=== PATIENT | male | born 1960 | race Caucasian/White ===

== ENCOUNTER 2024-05-12 12:48 | Emergency (ER) | payer OTHER, SELFPAY ==
[2024-05-12] VITALS (11 sets, daily range): BP systolic 107–193; BP diastolic 55–91; PULSE 77–88; RESP 10–21; TEMP 37.2; O2SAT 97–100; BMI 49.6
--- NOTE | 2024-05-12 13:10 | EKG_ITS ---
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
--- NOTE | 2024-05-12 13:10 | DI.RAD.S_ITS ---
PROCEDURE: XR CHEST 1V INDICATIONS: chest pain TECHNIQUE: One view of the chest was acquired. COMPARISON: None. FINDINGS: Surgical changes and devices: Right chest wall Port-A-Cath tip is in SVC. Left chest wall pacemaker leads are in the region of right atrium, and right ventricle. Surgical clips are noted in left axilla. Postsurgical changes are seen in mid to lower cervical spine. Lungs and pleura: Lungs are clear. No pleural effusions or pneumothorax. Mediastinum: Mediastinal contours appear normal. Heart size is enlarged. Bones and chest wall: No suspicious bony lesions. Overlying soft tissues appear unremarkable. IMPRESSION: No acute cardiopulmonary pathology. Dictated by: Chemo Richards M.D. on 05/12/2024 at 13:54 Approved by: Chemo Richards M.D. on 05/12/2024 at 14:02
[2024-05-12 13:19] LABS: Add Manual Diff / Slide Review NO; Basophils Absolute Auto 100 /uL (0-100); Basophils Percent Auto 0.4 % (0-2); Eosinophils Absolute Auto 200 /uL (0-450); Eosinophils Percent Auto 1.1 % (2-4); Hemoglobin 11.5 g/dL (13.5-17.5); Lymphocytes Absolute Auto 2200 /uL (1100-4500); Lymphocytes Percent Auto 15.2 % (25-40); Mean Corpuscular Hemoglobin 28.4 PG (26-34); Mean Corpuscular Volume 86.1 fL (80-100); Monocytes Absolute Auto 1200 /uL (0-900); Monocytes Percent Auto 8.3 % (3-14); Neutrophils Absolute Auto 11100 /uL (1500-7000); Platelet Count 222 X10^3/uL (150-400); Red Blood Cell Count 4.06 X10^6/uL (4.5-5.9); Red Cell Distribution Width 16.3 % (11.6-14.8); White Blood Cell Count 14.8 X10^3/uL (4.5-11.0)
[2024-05-12 13:20] LABS: INR 1.7 (0.9-1.3); Prothrombin Time 18.8 SECONDS (9.4-12.5)
[2024-05-12 13:23] LABS: PTT Partial Thromboplastin Tim 36 SECONDS (25.1-36.5)
[2024-05-12 13:26] LABS: Alanine Aminotransferase 50 IU/L (<50); Albumin Globulin Ratio 1.2 (1.0-2.8); Alkaline Phosphatase 81 U/L (38-126); Aspartate Aminotransferase 35 IU/L (17-59); BUN Creatinine Ratio 24.1 (6-22); Bilirubin Total 0.7 mg/dL (0.2-1.3); Blood Urea Nitrogen 35 mg/dL (9-20); Calcium 9.4 mg/dL (8.4-10.2); Carbon Dioxide 24 mmol/L (22-32); Chloride 105 mmol/L (98-107); Creatine Kinase 89 U/L (55-170); Estimated Glomerular Filt Rate 54 mL/min (>60); Globulin 3.4 g/dL (1.7-4.1); Glucose 143 mg/dL (80-110); HEMOLYSIS < 15 (0-50); Lipase 148 U/L (23-300); Magnesium 1.3 mg/dL (1.6-2.3); Potassium 3.9 mmol/L (3.4-5.1); Sodium 139 mmol/L (137-145); Total Protein 7.4 g/dL (6.3-8.2)
--- NOTE | 2024-05-12 13:32 | ED_ITS ---
HPI - Seizure General Chief Complaint: Seizure Stated Complaint: Seizure Time Seen by Provider: 05/12/24 13:31 Source: patient, EMS, RN notes reviewed and old records reviewed Mode of arrival: EMS Limitations: no limitations History of Present Illness HPI Narrative: 64-year-old male known history of breast cancer, patient reports that it was in his blood and reportedly metastasized, patient states he is on Eliquis daily has known cardiac history with a pacemaker. Had possible seizures sounds like he was hospitalized at [facility] sounds like he had an EEG but was told that they are still figuring him out. He was not on any antiseizure medication. Was having a PET scan earlier today when started having shaking but was alert throughout. He states he could feel himself getting tight everywhere and then feeling shaky. Never had loss of consciousness was not aphasic. Was described as being shaky but no tonic-clonic activity. Patient states no fevers or chills. No chest pain or shortness of breath. Chronically has nausea takes anti nausea medication. Denies any abdominal back or flank pain that is new. States he had a bowel movement 2 days ago. Denies any new urinary symptoms. No incontinence today. No cuts to his tongue. Patient states follows with Dr. Kelley for his primary care. Follows with Dr. Ruvalcaba for oncology at [facility] in [place]. Patient has had chemotherapy and radiation is currently on a break for the past 3 months. Patient is alert, appropriate states his symptoms have resolved he would like to return home. Related Data Allergies Allergy/AdvReac Type Severity Reaction Status Date / Time azithromycin Allergy Severe Anaphylaxis Verified 05/12/24 14:58 Review of Systems Review of Systems ROS Unobtainable: All systems reviewed & are unremarkable except as noted in HPI and below Exam Narrative Exam Narrative: GENERAL: Alert and oriented x three, obese male in mild distress HEENT: Head normocephalic, atraumatic, EOMI, pupils reactive, face symmetric, moist mucous membranes NECK: Supple, full range of motion CARDIOVASCULAR: Regular rate and rhythm without murmurs, rubs or gallops. RESPIRATORY: Breath sounds equal bilaterally, no wheezes rales or rhonchi. ABDOMEN: Soft, nontender. Normoactive bowel sounds all 4 quadrants. No guarding or rebound, rigidity, no mass : No CVA tenderness EXTREMITIES: Normal range of motion, no clubbing or edema. Neurovascularly intact NEUROLOGICAL: Cranial nerves II through XII grossly intact. Moving all extremities, no tremor. SKIN: Warm, dry, no petechiae, no rashes or lesions. Initial Vital Signs Initial Vital Signs: Vital Signs Temperature 98.9 F 05/12/24 12:47 Pulse Rate 85 05/12/24 12:47 Respiratory Rate 14 05/12/24 12:47 Blood Pressure 124/85 05/12/24 12:47 Pulse Oximetry 98 05/12/24 12:47 Oxygen Delivery Method Room Air 05/12/24 12:47 Course Orders Ordered: Discontinued Medications Ondansetron HCl (Ondansetron 4 Mg/2 Ml Inj) 4 mg IV NOW PRN PRN Reason: Nausea And Vomiting Last Admin: 05/12/24 15:11 Dose: 4 mg Documented By: ISAIAH Vital Signs Vital signs: Vital Signs - 8 hr 05/12/24 12:47 05/12/24 12:53 05/12/24 13:00 Temperature 98.9 F Pulse Rate 85 86 83 Respiratory Rate 14 18 13 Blood Pressure 124/85 124/85 162/77 H Pulse Oximetry 98 98 97 Oxygen Delivery Method Room Air 05/12/24 13:30 05/12/24 14:00 05/12/24 14:01 Temperature Pulse Rate 82 82 88 Respiratory Rate 14 21 19 Blood Pressure 188/79 H 166/83 H Pulse Oximetry 98 99 98 Oxygen Delivery Method Room Air 05/12/24 14:14 05/12/24 14:31 05/12/24 15:00 Temperature Pulse Rate 78 85 77 Respiratory Rate 15 16 12 Blood Pressure 193/91 H 107/55 L Pulse Oximetry 99 100 99 Oxygen Delivery Method 05/12/24 15:01 05/12/24 15:01 Temperature Pulse Rate 78 Respiratory Rate 10 L Blood Pressure 128/60 Pulse Oximetry 98 Oxygen Delivery Method MDM - Seizure Lab Data 05/12/24 12:48 05/12/24 12:48 Labs: Lab Results 05/12/24 Range/Units 12:48 WBC 14.8 H (4.5-11.0) X10^3/uL RBC 4.06 L (4.5-5.9) X10^6/uL Hgb 11.5 L (13.5-17.5) g/dL Hct 35.0 L (41-53) % MCV 86.1 (80-100) fL MCH 28.4 (26-34) PG MCHC 33.0 (30-36) % RDW 16.3 H (11.6-14.8) % Plt Count 222 (150-400) X10^3/uL Neut % (Auto) 75.0 (50-75) % Lymph % (Auto) 15.2 L (25-40) % [place] % (Auto) 8.3 (3-14) % Eos % (Auto) 1.1 L (2-4) % Baso % (Auto) 0.4 (0-2) % Neut # (Auto) 77066 H (4982-6928) /uL Lymph # (Auto) 2200 (9869-9896) /uL [place] # (Auto) 1200 H (0-900) /uL Eos # (Auto) 200 (0-450) /uL Baso # (Auto) 100 (0-100) /uL PT 18.8 H (9.4-12.5) SECONDS INR 1.7 H (0.9-1.3) APTT 36 (25.1-36.5) SECONDS Sodium 139 (137-145) mmol/L Potassium 3.9 (3.4-5.1) mmol/L Chloride 105 (98-107) mmol/L Carbon Dioxide 24 (22-32) mmol/L BUN 35 H (9-20) mg/dL Creatinine 1.45 H (0.66-1.25) mg/dL Estimated GFR 54 L (>60) mL/min BUN/Creatinine Ratio 24.1 H (6-22) Glucose 143 H (80-110) mg/dL Calcium 9.4 (8.4-10.2) mg/dL Magnesium 1.3 L (1.6-2.3) mg/dL Total Bilirubin 0.7 (0.2-1.3) mg/dL AST 35 (17-59) IU/L ALT 50 H (<50) IU/L Alkaline Phosphatase 81 (38-126) U/L Total Creatine Kinase 89 (55-170) U/L Troponin I < 0.012 (0.01-0.034) ng/mL NT-Pro-B Natriuret Pep 595 H (<125) pg/mL Total Protein 7.4 (6.3-8.2) g/dL Albumin 4.0 (3.5-5.0) g/dL Globulin 3.4 (1.7-4.1) g/dL Albumin/Globulin Ratio 1.2 (1.0-2.8) Lipase 148 (23-300) U/L ECG Data Attestation: I personally reviewed and interpreted this ECG as follows: Interpretation: Sinus rhythm rate 80 GA 142 QRS 88 QTC 415, no acute ST elevation depression noted. MDM Narrative Medical decision making narrative: 64-year-old male with possible seizure-like activity was witnessed by nursing states he was alert, shaky but did not have tonic-clonic activity from patient's description had possible seizure activity but he was not on any medication because ?on neurology is still figuring things out.? Was having an outpatient PET scan today when this occurred. Patient describes being alert throughout the entire episode and feeling very tight and shaky. He states symptoms have completely resolved. He was not had any interventions. We will obtain head CT as he states it has been several months since any imaging of his brain, labs and EKG as well as chest x-ray. Patient is requesting to return home. EKG shows sinus rhythm Labs show white count of 14.8 hemoglobin 11.5 platelets are 222. INR is 1.7 creatinine is 1.45 with a BUN of 35 electrolytes are otherwise appropriate glucose is 143 calcium is 9.4 Mag slightly low at 1.3 ALT is 50 otherwise normal AST, bilirubin and lipase. BNP is 595 troponins. Less than 0.012 Chest x-ray shows no acute change Head CT shows no acute change Discharge Plan Departure Patient Disposition: Home Clinical Impression: Episode of shaking Activity Restrictions/Additional Instructions: Please follow up with your physician and oncologist. Your labs show little bit of anemia with a hemoglobin 11.5, your white count slightly elevated at 14.8. Your creatinine is 1.45 I do not have any priors for comparison today. Please return or go to the closest emergency department for reoccurrence symptoms, severe headaches, new chest pain or shortness of breath, persistent vomiting, new loss of bowel or bladder control, atypical movements or other new or concerning changes. Referrals: Miscellaneous,Doctor, [Primary Care Provider] - Stand Alone Forms: Patient Portal/API/Survey
[2024-05-12 13:37] LABS: NT-proBNP (BNP-Adult 18+) 595 pg/mL (<125); Troponin I < 0.012 ng/mL (0.01-0.034)
--- NOTE | 2024-05-12 13:40 | DI.CT.S_ITS ---
PROCEDURE: CT HEAD/BRAIN WO CON INDICATIONS: ? seizure while at PET scan, has breast cancer w/ mets TECHNIQUE: Noncontrast 4.5 mm thick angled axial sections acquired from the foramen magnum to the vertex, with coronal and sagittal reformats. For radiation dose reduction, the following was used: automated exposure control, adjustment of mA and/or kV according to patient size. COMPARISON: [facility], CT, CT HEAD WITHOUT CONTRAST, 09/23/2020, 22:28. FINDINGS: Image quality: Diagnostic. CSF spaces: Basal cisterns are patent. No extra-axial fluid collections. The ventricles are symmetric in size and shape. Brain: No intracranial bleeds or masses. There is cerebral volume loss for age, with resultant ventricular and sulcal prominence. There are periventricular and deep white matter chronic small vessel ischemic changes. There is intracranial internal carotid artery atherosclerosis. Skull and face: Calvarium and visualized facial bones appear intact, without suspicious lesions. Sinuses: Visualized sinuses and mastoids are clear. IMPRESSION: No acute intracranial pathology. Dictated by: Chemo Richards M.D. on 05/12/2024 at 14:26 Approved by: Chemo Richards M.D. on 05/12/2024 at 14:26
[2024-05-12] MEDS: ONDANSETRON 4 MG/2 ML INJ IV (15:11)
== END 2024-05-12 15:45 | disposition home or self-care (01) ==
PROVIDERS: Emergency Provider Emergency Medicine
DX: R56.9 Unspecified convulsions (principal); Z85.3 Personal history of malignant neoplasm of breast; E66.9 Obesity, unspecified; Z68.42 Body mass index [BMI] 45.0-49.9, adult; Z95.0 Presence of cardiac pacemaker
CPT/HCPCS: 36415; 70450; 71045; 80053; 82550; 83690; 83735; 83880; 84484; 85025; 85610; 85730; 92950; 93005; 93010; 96374; 99284; 99285; J2405